=== PATIENT | female | born 1985 | race Caucasian/White ===

== ENCOUNTER 2017-08-02 04:13 | Emergency (ER) | payer OTHER ==
[~2017-08-02] VITALS: Ht 165.1 cm; Wt 67.4 kg
[2017-08-02 04:29] VITALS: BP 106/76
== END 2017-08-02 08:39 | disposition left against medical advice (07) ==
LOC: ER 04:13
DX: Z53.21 Procedure and treatment not carried out due to patient leaving prior to being seen by health care provider (principal)